=== PATIENT | female | born 1975 | race Caucasian/White ===

== ENCOUNTER 2022-12-31 09:13 | Outpatient (CLI) | payer MEDICARE | END 2022-12-31 09:14 | disposition home or self-care (01) | LOC: TBSIIMAG 09:13 | PROVIDERS: ATTEND Neurological Surgery | DX: M43.16 Spondylolisthesis, lumbar region (principal); Z98.890 Other specified postprocedural states | CPT/HCPCS: 72100 ==

== ENCOUNTER 2023-01-13 12:20 | Outpatient (CLI) | payer MEDICARE, MEDICAID | END 2023-01-13 12:21 | disposition home or self-care (01) | LOC: EDBD → TBSIIMAG 12:20 | PROVIDERS: ATTEND Neurological Surgery | DX: M54.16 Radiculopathy, lumbar region (principal); M54.2 Cervicalgia; M47.812 Spondylosis without myelopathy or radiculopathy, cervical region; M50.31 Other cervical disc degeneration, high cervical region; M50.222 Other cervical disc displacement at C5-C6 level; Z98.1 Arthrodesis status | CPT/HCPCS: 72100; 72141 ==